=== PATIENT | female | born 1960 | race Caucasian/White ===

== ENCOUNTER 2017-07-19 13:42 | Emergency (ER) | payer MEDICAID ==
[~2017-07-19] VITALS: Ht 180.3 cm; Wt 97.5 kg
[2017-07-19] MEDS ORDERED: HYDR-569 PO (14:43)
[2017-07-19 14:53] VITALS: BP 136/86
== END 2017-07-19 14:57 | disposition home or self-care (01) ==
LOC: ER 13:44
DX: G89.29 Other chronic pain (principal); M54.2 Cervicalgia; M25.552 Pain in left hip; M19.90 Unspecified osteoarthritis, unspecified site; Z59.0 Homelessness; Z56.0 Unemployment, unspecified; Z88.2 Allergy status to sulfonamides
CPT/HCPCS: 99283

== ENCOUNTER 2017-07-24 17:22 | Emergency (ER) | payer MEDICAID ==
[~2017-07-24] VITALS: Ht 180.3 cm; Wt 96.2 kg
[~2017-07-24 17:22] MED LIST: HYDR-569 PO
[2017-07-24 18:09] LABS: CLARITY,URINE SLIGHTLY CLOUDY (Clear); COLOR,URINE YELLOW (Yellow); GLUCOSE, URINE NEGATIVE (Neg); KETONES,URINE NEGATIVE (Neg); LEUKOCYTE ESTERASE ,URINE SMALL (Neg); NITRITES, URINE NEGATIVE (Neg); OCCULT BLOOD,URINE MODERATE (Neg); PROTEIN,URINE NEGATIVE (Neg); UA COLLECTION TYPE CLN CATCH MIDSTREAM
[2017-07-24 18:21] LABS: RBC,URINE 0-2 /HPF (0-2)
[2017-07-24 18:22] LABS: BACTERIA,URINE 2+ /HPF (Neg); SQUAMOUS EPITHELIAL CELL,UR FEW /LPF (FEW)
[2017-07-24] MEDS ORDERED: NITR100C PO (18:49)
[2017-07-24] MEDS ORDERED: CIPR-260 PO (18:50)
[2017-07-24 19:03] VITALS: BP 119/66
== END 2017-07-24 19:04 | disposition home or self-care (01) ==
LOC: ER 17:23
DX: N39.0 Urinary tract infection, site not specified (principal); G89.29 Other chronic pain; Z59.0 Homelessness
CPT/HCPCS: 81001; 87088; 99284

== ENCOUNTER 2017-07-30 20:45 | Emergency (ER) | payer MEDICAID ==
[~2017-07-30] VITALS: Ht 180.3 cm; Wt 99.0 kg
[~2017-07-30 20:45] MED LIST changes: +CIPR-260 PO
[2017-07-30] MEDS ORDERED: dexamethasone sod phosphate 10mg/ml inj IV STA (22:31)
[2017-07-30] MEDS ORDERED: PROC5TAB56 PO (22:32)
[2017-07-30] MEDS ORDERED: SUMA25TA35 PO (22:32)
[2017-07-30] MEDS ORDERED: ketorolac tromethamine 15mg/ml inj. IV ONE (22:35)
[2017-07-30] MEDS ORDERED: SUMAtriptan succ. 6 MG/0.5ml vial SQ ONE (22:35)
[2017-07-30] MEDS ORDERED: normal saline 1000ML IV soln IVB ONE (22:35)
[2017-07-30] MEDS ORDERED: proCHLORperazine 10 MG/2 ml inj IV ONE (22:35)
[2017-07-31 00:12] VITALS: BP 115/63
== END 2017-07-31 00:13 | disposition home or self-care (01) ==
LOC: ER 20:46
DX: G43.909 Migraine, unspecified, not intractable, without status migrainosus (principal); F17.200 Nicotine dependence, unspecified, uncomplicated
CPT/HCPCS: 96361; 96372; 96374; 96375; 99284; J0780; J1100; J1885; J3030; J7030